=== PATIENT | male | born 1975 | race Caucasian/White ===

== ENCOUNTER 2019-03-10 21:19 | Emergency (ER) | payer MEDICARE ==
[~2019-03-10] VITALS: Ht 177.8 cm; Wt 99.2 kg
[2019-03-10] MEDS ORDERED: KLONOPIN 1MG1 MG PO (21:31)
[2019-03-10 22:29] LABS: BASO # 0.1 (0.02-0.10); EOS % 0.4 % (0.0-4.0); HEMATOCRIT 45.7 % (42.0-52.0); HEMOGLOBIN 15.9 g/dL (13.5-18.0); LYMPH# 2.1 (1.50-4.00); MEAN CELL VOLUME 85 fl (78-100); MEAN CORPUSCULAR HEMOGLOBIN 30 pg (27-31); MEAN CORPUSCULAR HGB CONC 35 g/dL (33-37); MEAN PLATELET VOLUME 9.7 fl (7.4-10.4); MONO # 0.4 (0.20-0.80); NEU # 2.3 (1.40-6.50); PLATELET COUNT 218 K/mm3 (130-400); RED BLOOD COUNT 5.37 M/mm3 (4.20-5.60); RED CELL DISTRIBUTION WIDTH 13.5 % (11.5-14.5)
[2019-03-10 22:39] LABS: ALBUMIN 4.2 g/dL (3.5-5.0); POTASSIUM 3.5 mmol/L (3.5-5.1)
[2019-03-10 22:40] LABS: CALCIUM 9.7 mg/dL (8.3-10.5)
[2019-03-10 22:41] LABS: TOTAL PROTEIN 8.1 g/dL (6.4-8.3)
[2019-03-10 22:43] LABS: TOTAL BILIRUBIN 1.1 mg/dL (0.2-1.2)
[2019-03-10 23:30] LABS: URINE APPEARANCE CLEAR; URINE BILIRUBIN NEGATIVE (NEGATIVE); URINE BLOOD NEGATIVE (NEGATIVE); URINE COLOR YELLOW; URINE KETONE SMALL (NEGATIVE); URINE LEUKOCYTE ESTERASE NEGATIVE (NEGATIVE); URINE MUCUS PRESENT (NOT PRESENT); URINE NITRATE NEGATIVE (NEGATIVE); URINE PROTEIN(semi-quant) TRACE mg/dL (NEGATIVE); URINE UROBILINOGEN NORMAL (NORMAL); URINE WBC 0-1 /hpf (0-3)
[2019-03-10 23:36] VITALS: BP 154/98
[2019-03-10] MEDS ORDERED: ZOFRAN ODT4 MG PO (23:38)
== END 2019-03-10 23:48 | disposition home or self-care (01) ==
LOC: ED 21:19
PROVIDERS: Nurse Practitioner
DX: R19.7 Diarrhea, unspecified (principal); R11.2 Nausea with vomiting, unspecified; E11.9 Type 2 diabetes mellitus without complications; F41.9 Anxiety disorder, unspecified; K21.9 Gastro-esophageal reflux disease without esophagitis
CPT/HCPCS: J2405; J7030

== ENCOUNTER → 2019-04-24 | Outpatient (CLI) | payer MEDICARE ==
[~2019-04-24] MED LIST: KLONOPIN 1MG1 MG PO; ZOFRAN ODT4 MG PO
== END ==
LOC: LAB 09:09
DX: Z12.5 Encounter for screening for malignant neoplasm of prostate (principal); E78.2 Mixed hyperlipidemia; E11.9 Type 2 diabetes mellitus without complications

== ENCOUNTER → 2019-06-13 | Outpatient (CLI) | payer MEDICARE ==
[2019-06-13 08:40] LABS: POTASSIUM 3.9 mmol/L (3.5-5.1)
[2019-06-13 08:41] LABS: CALCIUM 9.8 mg/dL (8.3-10.5)
[2019-06-13 08:42] LABS: TOTAL PROTEIN 8.3 g/dL (6.4-8.3)
[2019-06-13 08:58] LABS: HEMATOCRIT 46.7 % (42.0-52.0); HEMOGLOBIN 15.9 g/dL (13.5-18.0); MEAN CELL VOLUME 86 fl (78-100); MEAN CORPUSCULAR HEMOGLOBIN 29 pg (27-31); MEAN CORPUSCULAR HGB CONC 34 g/dL (33-37); MEAN PLATELET VOLUME 9.4 fl (7.4-10.4); PLATELET COUNT 206 K/mm3 (130-400); RED BLOOD COUNT 5.43 M/mm3 (4.20-5.60); RED CELL DISTRIBUTION WIDTH 13.4 % (11.5-14.5); WHITE BLOOD COUNT 5.3 K/mm3 (4.8-10.8)
[2019-06-13 09:13] LABS: LYMPHOCYTE 28 % (20-51); MONOCYTE 7 % (3-10); NEUTROPHILS 63 % (42-75)
== END ==
LOC: LAB 08:13
PROVIDERS: Internal Medicine
DX: I10 Essential (primary) hypertension (principal)

== ENCOUNTER → 2020-05-31 | Outpatient (CLI) | payer MEDICARE ==
[~2020-05-31] MED LIST changes: +ACETAMINOPHEN500 M7 PO; +AMARYL1 M1 PO; +DULCOLAX PO; +LOMOTIL TAB 01 UDTAB; +MELATONIN5 M3 PO; +ROBAXIN 75750 MG/TA1 PO; +ROXICODONE5 M1 PO; +TOPCARE MI1200 MG/15 PO; +TRAMADOL 50 MG TAB PO
[2020-05-31 10:55] LABS: URINE WBC 0 /hpf (0-3)
[2020-05-31 11:16] LABS: BASO # 0.1 (0.02-0.10); EOS % 0.2 % (0.0-4.0); HEMATOCRIT 42.7 % (42.0-52.0); HEMOGLOBIN 14.4 g/dL (13.5-18.0); LYMPH# 1.7 (1.50-4.00); MEAN CELL VOLUME 86 fl (78-100); MEAN CORPUSCULAR HEMOGLOBIN 29 pg (27-31); MEAN CORPUSCULAR HGB CONC 34 g/dL (33-37); MEAN PLATELET VOLUME 9.6 fl (7.4-10.4); MONO # 0.2 (0.20-0.80); PLATELET COUNT 247 K/mm3 (130-400); RED BLOOD COUNT 4.97 M/mm3 (4.20-5.60); RED CELL DISTRIBUTION WIDTH 13.5 % (11.5-14.5); WHITE BLOOD COUNT 4.2 K/mm3 (4.8-10.8)
[2020-05-31 11:26] LABS: ALBUMIN 3.9 g/dL (3.5-5.0); POTASSIUM 4.1 mmol/L (3.5-5.1)
[2020-05-31 11:27] LABS: CALCIUM 9.1 mg/dL (8.3-10.5)
[2020-05-31 11:29] LABS: URINE APPEARANCE CLEAR; URINE BILIRUBIN NEGATIVE (NEGATIVE); URINE BLOOD NEGATIVE (NEGATIVE); URINE COLOR YELLOW; URINE KETONE NEGATIVE (NEGATIVE); URINE LEUKOCYTE ESTERASE NEGATIVE (NEGATIVE); URINE NITRATE NEGATIVE (NEGATIVE); URINE PROTEIN(semi-quant) NEGATIVE (NEGATIVE); URINE UROBILINOGEN NORMAL (NORMAL)
[2020-05-31 11:31] LABS: TOTAL BILIRUBIN 0.6 mg/dL (0.2-1.2)
[2020-05-31 22:51] LABS: CREATININE OTHER SOURCE 57 mg/dL (())
[2020-06-01 10:59] LABS: TESTOSTERONE 366 ng/dL (240-871)
== END ==
LOC: LAB 10:43
PROVIDERS: Internal Medicine
DX: Z12.11 Encounter for screening for malignant neoplasm of colon (principal); Z12.5 Encounter for screening for malignant neoplasm of prostate; E11.9 Type 2 diabetes mellitus without complications; E78.2 Mixed hyperlipidemia; I10 Essential (primary) hypertension; K90.9 Intestinal malabsorption, unspecified

== ENCOUNTER → 2020-12-20 | Outpatient (CLI) | payer MEDICARE ==
[~2020-12-20] MED LIST changes: +LEVOFLOXACIN750 MG PO; +METRONIDAZOLE500 M1 PO
== END ==
LOC: LAB 13:36
DX: U07.1 COVID-19 (principal)

== ENCOUNTER → 2020-12-21 | Outpatient (CLI) | payer MEDICARE ==
[2020-12-21] VITALS (7 sets, daily range): BP systolic 131–141; BP diastolic 89–97
[~2020-12-21] VITALS: Ht 175.3 cm; Wt 89.5 kg
== END ==
LOC: AMSURD 09:01
DX: U07.1 COVID-19 (principal)
CPT/HCPCS: M0243; Q0244

== ENCOUNTER 2021-01-18 09:24 | Emergency (ER) | payer MEDICARE ==
[~2021-01-18] VITALS: Ht 175.3 cm; Wt 89.0 kg
[~2021-01-18 09:24] MED LIST changes: -ACETAMINOPHEN500 M7 PO; -AMARYL1 M1 PO; -DULCOLAX PO; -LEVOFLOXACIN750 MG PO; -LOMOTIL TAB 01 UDTAB; -MELATONIN5 M3 PO; -METRONIDAZOLE500 M1 PO; -ROBAXIN 75750 MG/TA1 PO; -ROXICODONE5 M1 PO; -TOPCARE MI1200 MG/15 PO; -TRAMADOL 50 MG TAB PO
[2021-01-18] MEDS ORDERED: LOMOTIL TAB 01 UDTAB (09:47)
[2021-01-18] MEDS ORDERED: TRAMADOL 50 MG TAB PO (09:48)
[2021-01-18] MEDS ORDERED: ACETAMINOPHEN500 M7 PO (09:49)
[2021-01-18] MEDS ORDERED: AMARYL1 M1 PO (09:49)
[2021-01-18 11:13] LABS: URINE APPEARANCE CLEAR; URINE BILIRUBIN NEGATIVE (NEGATIVE); URINE BLOOD NEGATIVE (NEGATIVE); URINE COLOR LT YELLOW; URINE GLUCOSE NEGATIVE (NEGATIVE); URINE KETONE NEGATIVE (NEGATIVE); URINE LEUKOCYTE ESTERASE NEGATIVE (NEGATIVE); URINE NITRATE NEGATIVE (NEGATIVE); URINE PROTEIN(semi-quant) NEGATIVE (NEGATIVE); URINE UROBILINOGEN NORMAL (NORMAL); URINE WBC 0-1 /hpf (0-3)
[2021-01-18 11:14] LABS: URINE MUCUS PRESENT (NOT PRESENT)
[2021-01-18 12:02] LABS: BASO # 0.01 K/mm3 (0.02-0.10); EOS # 0.02 K/mm3 (0.04-0.40); EOS % 0.7 % (0.0-4.0); HEMATOCRIT 40.2 % (42.0-52.0); HEMOGLOBIN 12.6 g/dL (13.5-18.0); MEAN CELL VOLUME 87 fl (78-100); MEAN CORPUSCULAR HEMOGLOBIN 27 pg (27-31); MEAN CORPUSCULAR HGB CONC 31 g/dL (33-37); MEAN PLATELET VOLUME 10.4 fl (7.4-10.4); NEU # 1.27 K/mm3 (1.40-6.50); PLATELET COUNT 253 K/mm3 (130-400); RED BLOOD COUNT 4.63 M/mm3 (4.20-5.60); RED CELL DISTRIBUTION WIDTH 14.6 % (11.5-14.5); WHITE BLOOD COUNT 3.1 K/mm3 (4.8-10.8)
[2021-01-18 12:56] LABS: ALBUMIN 3.9 g/dL (3.5-5.0)
[2021-01-18 12:59] LABS: POTASSIUM 4.2 mmol/L (3.5-5.1); TOTAL PROTEIN 8.3 g/dL (6.4-8.3)
[2021-01-18 13:03] LABS: TOTAL BILIRUBIN 0.6 mg/dL (0.2-1.2)
[2021-01-18 16:51] VITALS: BP 151/91
== END 2021-01-18 17:11 | disposition home or self-care (01) ==
LOC: ED 09:24
PROVIDERS: Physician Assistant
DX: C20 Malignant neoplasm of rectum (principal); R33.9 Retention of urine, unspecified; I10 Essential (primary) hypertension; F41.1 Generalized anxiety disorder; E66.9 Obesity, unspecified; E11.649 Type 2 diabetes mellitus with hypoglycemia without coma; F32.A Depression, unspecified; Z86.16 Personal history of COVID-19; Z79.899 Other long term (current) drug therapy
CPT/HCPCS: A4340; J7030

== ENCOUNTER → 2021-01-22 | Outpatient (CLI) | payer MEDICARE ==
[~2021-01-22] VITALS: Ht 175.3 cm; Wt 89.0 kg
[~2021-01-22] MED LIST changes: +ACETAMINOPHEN500 M7 PO; +AMARYL1 M1 PO; +DULCOLAX PO; +LEVOFLOXACIN750 MG PO; +LOMOTIL TAB 01 UDTAB; +MELATONIN5 M3 PO; +METRONIDAZOLE500 M1 PO; +ROBAXIN 75750 MG/TA1 PO; +ROXICODONE5 M1 PO; +TOPCARE MI1200 MG/15 PO; +TRAMADOL 50 MG TAB PO
== END ==
LOC: AMSURD 16:33
DX: R33.8 Other retention of urine (principal)

== ENCOUNTER → 2021-01-27 | Outpatient (CLI) | payer MEDICARE ==
[2021-01-27 18:18] LABS: ALBUMIN 3.8 g/dL (3.5-5.0); POTASSIUM 4.1 mmol/L (3.5-5.1)
[2021-01-27 18:19] LABS: CALCIUM 10.2 mg/dL (8.3-10.5)
[2021-01-27 18:20] LABS: TOTAL PROTEIN 8.4 g/dL (6.4-8.3)
[2021-01-27 18:22] LABS: TOTAL BILIRUBIN 0.3 mg/dL (0.2-1.2)
== END ==
LOC: LAB 17:55
PROVIDERS: Internal Medicine
DX: E11.9 Type 2 diabetes mellitus without complications (principal); K90.9 Intestinal malabsorption, unspecified

== ENCOUNTER 2021-03-05 20:32 | Emergency (ER) | payer MEDICARE ==
[~2021-03-05] VITALS: Ht 175.3 cm; Wt 84.1 kg
[~2021-03-05 20:32] MED LIST changes: -DULCOLAX PO; -LEVOFLOXACIN750 MG PO; -MELATONIN5 M3 PO; -METRONIDAZOLE500 M1 PO; -ROBAXIN 75750 MG/TA1 PO; -ROXICODONE5 M1 PO; -TOPCARE MI1200 MG/15 PO
[2021-03-05] MEDS ORDERED: ROXICODONE5 M1 PO (20:50)
[2021-03-05] MEDS ORDERED: MELATONIN5 M3 PO (20:51)
[2021-03-05] MEDS ORDERED: ROBAXIN 75750 MG/TA1 PO (20:51)
[2021-03-05] MEDS ORDERED: TOPCARE MI1200 MG/15 PO (20:52)
[2021-03-05] MEDS ORDERED: DULCOLAX PO (20:52)
[2021-03-05 21:43] LABS: BASO # 0.02 K/mm3 (0.02-0.10); EOS # 0.02 K/mm3 (0.04-0.40); EOS % 0.3 % (0.0-4.0); HEMATOCRIT 33.6 % (42.0-52.0); HEMOGLOBIN 10.9 g/dL (13.5-18.0); LYMPH# 1.37 K/mm3 (1.50-4.00); MEAN CELL VOLUME 84 fl (78-100); MEAN CORPUSCULAR HEMOGLOBIN 27 pg (27-31); MEAN CORPUSCULAR HGB CONC 32 g/dL (33-37); MEAN PLATELET VOLUME 8.9 fl (7.4-10.4); MONO # 0.52 K/mm3 (0.20-0.80); NEU # 5.62 K/mm3 (1.40-6.50); PLATELET COUNT 465 K/mm3 (130-400); RED BLOOD COUNT 4.01 M/mm3 (4.20-5.60); RED CELL DISTRIBUTION WIDTH 14.3 % (11.5-14.5)
[2021-03-05 21:50] LABS: ALBUMIN 3.2 g/dL (3.5-5.0)
[2021-03-05 21:51] LABS: POTASSIUM 3.8 mmol/L (3.5-5.1)
[2021-03-05 21:52] LABS: CALCIUM 9.5 mg/dL (8.3-10.5)
[2021-03-05 21:53] LABS: TOTAL PROTEIN 8.1 g/dL (6.4-8.3)
[2021-03-05 21:55] LABS: TOTAL BILIRUBIN 0.4 mg/dL (0.2-1.2)
[2021-03-05 22:02] LABS: PH-URINE 5.5 (5.0 - 8.0); URINE APPEARANCE HAZY; URINE BILIRUBIN NEGATIVE (NEGATIVE); URINE BLOOD TRACE (NEGATIVE); URINE COLOR YELLOW; URINE GLUCOSE NEGATIVE (NEGATIVE); URINE KETONE NEGATIVE (NEGATIVE); URINE LEUKOCYTE ESTERASE 2+ (NEGATIVE); URINE NITRATE NEGATIVE (NEGATIVE); URINE PROTEIN(semi-quant) TRACE mg/dL (NEGATIVE); URINE UROBILINOGEN NORMAL (NORMAL)
[2021-03-05 22:12] LABS: URINE WBC 31-50 /hpf (0-3)
[2021-03-05 22:13] LABS: URINE MUCUS PRESENT (NOT PRESENT)
[2021-03-06] MEDS ORDERED: LEVOFLOXACIN750 MG PO (02:36)
[2021-03-06] MEDS ORDERED: METRONIDAZOLE500 M1 PO (02:36)
[2021-03-06 03:24] VITALS: BP 133/82
== END 2021-03-06 03:24 | disposition home or self-care (01) ==
LOC: ED 20:32
PROVIDERS: Family Medicine
DX: K52.9 Noninfective gastroenteritis and colitis, unspecified (principal); C20 Malignant neoplasm of rectum; T83.511A Infection and inflammatory reaction due to indwelling urethral catheter, initial encounter; R50.9 Fever, unspecified; F41.9 Anxiety disorder, unspecified; F32.A Depression, unspecified; I10 Essential (primary) hypertension; E11.9 Type 2 diabetes mellitus without complications; Z79.899 Other long term (current) drug therapy
CPT/HCPCS: J0595; J1956; J2405; J2550; J3490; J7030; Q9967

== ENCOUNTER → 2021-05-31 | Outpatient (CLI) | payer MEDICARE ==
[~2021-05-31] MED LIST changes: +DULCOLAX PO; +LEVOFLOXACIN750 MG PO; +MELATONIN5 M3 PO; +METRONIDAZOLE500 M1 PO; +ROBAXIN 75750 MG/TA1 PO; +ROXICODONE5 M1 PO; +TOPCARE MI1200 MG/15 PO
[2021-05-31 13:58] LABS: HEMATOCRIT 30.6 % (42.0-52.0); HEMOGLOBIN 9.6 g/dL (13.5-18.0); MEAN CELL VOLUME 85 fl (78-100); MEAN CORPUSCULAR HEMOGLOBIN 27 pg (27-31); MEAN CORPUSCULAR HGB CONC 31 g/dL (33-37); MEAN PLATELET VOLUME 8.9 fl (7.4-10.4); PLATELET COUNT 272 K/mm3 (130-400); RED BLOOD COUNT 3.62 M/mm3 (4.20-5.60); RED CELL DISTRIBUTION WIDTH 16.9 % (11.5-14.5); WHITE BLOOD COUNT 3.4 K/mm3 (4.8-10.8)
[2021-05-31 14:07] LABS: ALBUMIN 3.5 g/dL (3.5-5.0); POTASSIUM 4.2 mmol/L (3.5-5.1)
[2021-05-31 14:08] LABS: CALCIUM 9.4 mg/dL (8.3-10.5)
[2021-05-31 14:09] LABS: TOTAL PROTEIN 7.7 g/dL (6.4-8.3)
[2021-05-31 14:11] LABS: TOTAL BILIRUBIN 0.4 mg/dL (0.2-1.2)
[2021-05-31 14:16] LABS: MAGNESIUM 1.81 mg/dL (1.60-2.60)
[2021-05-31 15:05] LABS: BAND 2 % (0-10); LYMPHOCYTE 14 % (20-51); MONOCYTE 10 % (3-10); NEUTROPHILS 74 % (42-75)
== END ==
LOC: LAB 13:38
PROVIDERS: Internal Medicine
DX: E11.9 Type 2 diabetes mellitus without complications (principal); I10 Essential (primary) hypertension; K90.9 Intestinal malabsorption, unspecified

== ENCOUNTER 2021-06-19 18:35 | Outpatient (RCR) | payer MEDICARE ==
[2021-06-13 18:54] VITALS: BP 120/75
[2021-06-14 18:28] VITALS: BP 117/73
[2021-06-16 19:17] VITALS: BP 122/81
[2021-06-16 19:45] VITALS: BP 122/78
[2021-06-17 19:15] VITALS: BP 109/72
[~2021-06-19] VITALS: Ht 175.3 cm; Wt 77.7 kg
[~2021-06-19 18:35] MED LIST changes: +HYOSCYAMINE0.125 M8 SL
[2021-06-19 19:34] VITALS: BP 120/80
== END 2021-06-19 21:00 | disposition home or self-care (01) ==
LOC: AMSURD 18:35
DX: E61.1 Iron deficiency (principal)
CPT/HCPCS: J1644; J1756

== ENCOUNTER → 2021-07-01 | Outpatient (CLI) | payer MEDICARE ==
[2021-07-01 14:21] LABS: HEMATOCRIT 35.8 % (42.0-52.0); HEMOGLOBIN 11.2 g/dL (13.5-18.0); MEAN CELL VOLUME 85 fl (78-100); MEAN CORPUSCULAR HEMOGLOBIN 27 pg (27-31); MEAN CORPUSCULAR HGB CONC 31 g/dL (33-37); MEAN PLATELET VOLUME 8.8 fl (7.4-10.4); PLATELET COUNT 231 K/mm3 (130-400); RED BLOOD COUNT 4.23 M/mm3 (4.20-5.60); RED CELL DISTRIBUTION WIDTH 16.7 % (11.5-14.5); WHITE BLOOD COUNT 2.9 K/mm3 (4.8-10.8)
[2021-07-01 14:54] LABS: ALBUMIN 3.5 g/dL (3.5-5.0); POTASSIUM 4.3 mmol/L (3.5-5.1)
[2021-07-01 14:55] LABS: CALCIUM 9.7 mg/dL (8.3-10.5)
[2021-07-01 14:56] LABS: LYMPHOCYTE 20 % (20-51); MONOCYTE 4 % (3-10); NEUTROPHILS 76 % (42-75)
[2021-07-01 14:57] LABS: TEAR DROP CELLS 1+
[2021-07-01 14:58] LABS: TOTAL BILIRUBIN 0.3 mg/dL (0.2-1.2)
[2021-07-01 15:00] LABS: TOTAL PROTEIN 8.2 g/dL (6.4-8.3)
[2021-07-01 15:07] LABS: MAGNESIUM 1.76 mg/dL (1.60-2.60)
== END ==
LOC: LAB 14:06
PROVIDERS: Internal Medicine
DX: C20 Malignant neoplasm of rectum (principal); K90.9 Intestinal malabsorption, unspecified; I10 Essential (primary) hypertension

== ENCOUNTER 2021-08-14 19:52 | Emergency (ER) | payer MEDICARE ==
[~2021-08-14] VITALS: Ht 175.3 cm; Wt 71.4 kg
[2021-08-14 20:14] VITALS: BP 124/88
[2021-08-14] MEDS ORDERED: AMOXICILLIN AND1 TA2 PO (23:24)
[2021-08-14] MEDS ORDERED: DESVENLAFAXINE50 M3 PO (23:25)
== END 2021-08-14 23:52 | disposition other institution (70) ==
LOC: ED 19:52
DX: R62.7 Adult failure to thrive (principal); Z93.3 Colostomy status; Z28.310 Unvaccinated for COVID-19

== ENCOUNTER 2021-08-14 22:00 | Inpatient (IN) | payer MEDICARE ==
[~2021-08-14] VITALS: Ht 175.3 cm; Wt 69.4 kg
--- NOTE | 2021-08-14 22:00 | NUR ---
Patient admitted acute from ER via wheelchair with DX of Rectal CA and failure to thrive in an adult. Patient alert and oriented x 4. Has a MANDI drain to left thigh and emptied with bowens brownish drainage and a true close drain to rectal area for drainage of abscess and emptied 50mls tanish brown drainage. True close drain tubing clamped and flushed with 5mls saline unclamped and flushed with 5 mls saline.
[2021-08-14] MEDS ORDERED: AMOXICILLIN AND1 TA2 PO (23:24)
[2021-08-14] MEDS ORDERED: DESVENLAFAXINE50 M3 PO (23:25)
--- NOTE | 2021-08-15 00:30 | NUR ---
Patient takes snack of 4 packages and peanut butter. Ate 2 packages. Jello given.
--- NOTE | 2021-08-15 01:30 | NUR ---
Patients rectal area cleansed with 5mls normal saline and 5 mls peroxide and new ABD pad applied held in place by underwear.
--- NOTE | 2021-08-15 03:00 | NUR ---
Patient rests quietly in bed. Respirations with ease.
--- NOTE | 2021-08-15 05:20 | NUR ---
Patient rests with eyes closed. Respirations shallow with ease.
[2021-08-15 05:59] VITALS: BP 121/87
[2021-08-15 07:58] LABS: HEMATOCRIT 28.7 % (42.0-52.0); MEAN CELL VOLUME 85 fl (78-100); MEAN CORPUSCULAR HEMOGLOBIN 27 pg (27-31); MEAN CORPUSCULAR HGB CONC 31 g/dL (33-37); MEAN PLATELET VOLUME 9.4 fl (7.4-10.4); PLATELET COUNT 327 K/mm3 (130-400); RED BLOOD COUNT 3.37 M/mm3 (4.20-5.60); RED CELL DISTRIBUTION WIDTH 16.5 % (11.5-14.5); WHITE BLOOD COUNT 2.6 K/mm3 (4.8-10.8)
[2021-08-15 08:12] LABS: ALBUMIN 3.4 g/dL (3.5-5.0)
[2021-08-15 08:13] LABS: CALCIUM 9.8 mg/dL (8.3-10.5)
[2021-08-15 08:14] LABS: TOTAL PROTEIN 7.6 g/dL (6.4-8.3)
[2021-08-15 08:16] LABS: TOTAL BILIRUBIN 0.2 mg/dL (0.2-1.2)
[2021-08-15 08:21] LABS: MAGNESIUM 1.79 mg/dL (1.60-2.60)
[2021-08-15 08:25] LABS: BAND 12 % (0-10); LYMPHOCYTE 27 % (20-51); MONOCYTE 5 % (3-10); NEUTROPHILS 55 % (42-75)
[2021-08-15 08:26] LABS: HYPOCHROMIA 1+
[2021-08-15 08:29] LABS: D-DIMER 1.26 mg/L FEU (0.15-0.50)
[2021-08-15 09:12] LABS: ERYTHROCYTE SEDIMENTATION RATE 143 mm/hr (0-15)
[2021-08-15 10:32] VITALS: BP 128/83
--- NOTE | 2021-08-15 13:00 | NUR ---
Receied report from Paola Lang RN.
--- NOTE | 2021-08-15 13:09 | NUR ---
REPORT GIVEN TO RAKESH MCKINLEY
--- NOTE | 2021-08-15 13:40 | NUR ---
Nayan Cabrera MD informed of patient complaint of gas pain.
--- NOTE | 2021-08-15 14:02 | NUR ---
ABN SIGNED BY PATIENT STATES UNDERSTANDING, GIVEN A COPY OF ABN. AWAITING DISOPOSITION OF AUTHORIZATION FROM [employer] [facility] [employer].
[2021-08-15 14:15] VITALS: BP 115/74
[2021-08-15 18:27] VITALS: BP 136/88
--- NOTE | 2021-08-15 18:29 | NUR ---
Blood glucose recheck 228.
--- NOTE | 2021-08-15 18:51 | NUR ---
awaiting insurance determination for acute stay and swb?
--- NOTE | 2021-08-15 18:51 | NUR ---
called yordan to [facility]. asked about potential appointments this week? could they be virtual.
--- NOTE | 2021-08-15 19:00 | NUR ---
Report received from Letty MCKINLEY.
--- NOTE | 2021-08-15 21:00 | NUR ---
States that pain med earlier helped. Affect flat/depressed. Thigh drain tubing clamped and flushed with 5mls NS unclamped and flushed with 5mls saline. 60 mls of milky bowens drainage emptied from drain by patient while nurse holds cup. Patient does black care with set up help and assist managing underwear. Anal flap cleansed with peroxide and saline, patted dry and sanitary pad applied. Requests stool softner but declines this HS and will take in am. Snacks of choice given.
--- NOTE | 2021-08-15 21:00 | NUR ---
Patient states pain med given earlier helped. Affect flat. Alert and oriented x 4. True close suction drain to left buttuck tubing clamped and flushed with 5 mls NS then unclamped and flushed with 5mls NS. 60 mls milky bowens drainage emptied by patient while nurse held cup. Patient does black care with set up help and assist with clothing. Coccyx cleansed with mixture of 5mls peroxide and 5mls NS, patted dry and sanitary pad applied. Scant bowens drainage noted on previous ABD pad. Requested stool softner, nurse brought in and patient declined. States will take in am.
--- NOTE | 2021-08-15 23:45 | NUR ---
Patient states he will take colace now and given. Tylenol and klonopin given earlier for dull achy pain to lower abdomin and coccyx.
--- NOTE | 2021-08-16 01:30 | NUR ---
Patient awake and states he just checked his blood sugar and is 160 per own glucometer. Currently eating rest of peanut butter and jelly sandwich and inquiring if he should have juice. Explained not recommended at this time for a blood sugar of 160.
--- NOTE | 2021-08-16 04:21 | NUR ---
Patient awake. States "no not really" to question if getting sleep this noc.
--- NOTE | 2021-08-16 04:29 | NUR ---
Requests klonopin for sleep and roxycodone for "bottom hurting" 5/10 pain level and given.
[2021-08-16 06:11] VITALS: BP 127/86
[2021-08-16 10:25] VITALS: BP 126/82
--- NOTE | 2021-08-16 10:38 | NUR ---
Pt a/o x4. Pt states has 6/10 pain. This nurse gave PRN med for pain. Pt was up for breakfast but went back to bed after he ate. Reviewed pt drains and showering status. This nurse recommended he take a shower today with assistance. Pt in bed, call light within reach.
[2021-08-16 13:53] VITALS: BP 115/83
--- NOTE | 2021-08-16 14:01 | NUR ---
Pt's black catheter has hematuria when he sits or stands. Reported to MUNIR Pedroza. Pt has pelvic accordian drain that is producing malodorous, purulent drainage. Called [facility]. Per [facility], flushing 10 mL Normal Saline is ok BID.
--- NOTE | 2021-08-16 14:20 | NUR ---
Flushed pelvic wound drain with 10 mL of normal saline.
--- NOTE | 2021-08-16 14:34 | NUR ---
Called [facility]. They still have Anurag on Services. Left a voice message for his nurse to call me back and or fax records to give care to drains and wound care. Was advised by nursing that the exudate draining from the wound is purulant and foul smelling. Currently Anurag is on augmentin 875 mg twice daily. WBC's are low at 2.6. Not sure of his previous wbc count. Graciela Guevara will discuss with Dr. Cabrera plan of care. Nursing reports Urin is ladan colored as well. Notified insurance [facility] [employer] that Dr. Cabrera will want to do a peer to peer with their provider for potential swb/acute care. No authorizations as of yet.
[2021-08-16 15:41] LABS: URINE APPEARANCE CLEAR; URINE BILIRUBIN NEGATIVE (NEGATIVE); URINE BLOOD 250 ery/uL (NEGATIVE); URINE COLOR YELLOW; URINE GLUCOSE NEGATIVE (NEGATIVE); URINE KETONE NEGATIVE (NEGATIVE); URINE LEUKOCYTE ESTERASE 2+ (NEGATIVE); URINE MUCUS PRESENT (NOT PRESENT); URINE NITRATE NEGATIVE (NEGATIVE); URINE PROTEIN(semi-quant) 3+ (NEGATIVE); URINE UROBILINOGEN NORMAL (NORMAL); URINE WBC 16-30 /hpf (0-3)
--- NOTE | 2021-08-16 17:45 | NUR ---
This nurse and student nurse to room to administer new order of Levemier 10 units. Explained new order and purpose. Patient is reluctant to take and states that this is causes him "great anxiety". This nurse advised patient that he can refuse but that Dr. Cabrera is aware and would like him to take. Patient states he is "worried" he will go low in the night. Advised patient that if he feels he is slow or is exhibiting S/S of hypoglycemia that we can check his blood sugars, otherwise they will be checked before meals and at bedtime. Patient is still reluctant and undecesive and would like to talk to a provider. Brigid AMARAL notified.
[2021-08-16 18:07] VITALS: BP 123/80
--- NOTE | 2021-08-16 18:32 | NUR ---
Brigid in to see patient. Patient is still undecisive at this time.
--- NOTE | 2021-08-16 18:45 | NUR ---
Brigid AMARAL back in to talk to patient. Patient agrees to split dose BID. 5 Units in the AM and 5 Units in the evening.
--- NOTE | 2021-08-16 19:08 | NUR ---
Resting supine in bed. IVF infusing NS at 100 ML/HR via accessed port. Rates pain 5/10 to buttocks but denies need for analgesic at this time. Requested and given klonopin now. Valverde patent to DD with tea colored urine in bag. Colostomy bag intact with no BM in bag.
--- NOTE | 2021-08-17 01:46 | NUR ---
New bag of IVF hung. Patient sleeping with no signs of pain or distress.
--- NOTE | 2021-08-17 04:52 | NUR ---
Rested well all shift. Rings call light at 0430 to request Clonazepam and pain med. IV Zosyn and PO Protonix taken at this time as well. Thigh drain with 5 ML of drainage this shift. Abcess drain with 25 Ml of drainage. Rates pain 5/10. AM vital signs and weight obtained.
[2021-08-17 05:56] VITALS: BP 128/84
[2021-08-17 07:02] LABS: HEMATOCRIT 28.3 % (42.0-52.0); HEMOGLOBIN 8.6 g/dL (13.5-18.0); MEAN CELL VOLUME 87 fl (78-100); MEAN CORPUSCULAR HEMOGLOBIN 27 pg (27-31); MEAN CORPUSCULAR HGB CONC 30 g/dL (33-37); MEAN PLATELET VOLUME 8.9 fl (7.4-10.4); PLATELET COUNT 294 K/mm3 (130-400); RED BLOOD COUNT 3.24 M/mm3 (4.20-5.60); RED CELL DISTRIBUTION WIDTH 16.7 % (11.5-14.5); WHITE BLOOD COUNT 2.3 K/mm3 (4.8-10.8)
[2021-08-17 07:05] LABS: POTASSIUM 4.1 mmol/L (3.5-5.1)
[2021-08-17 07:06] LABS: CALCIUM 9.2 mg/dL (8.3-10.5)
[2021-08-17 07:10] LABS: TOTAL BILIRUBIN 0.3 mg/dL (0.2-1.2)
[2021-08-17 07:58] LABS: BAND 5 % (0-10); LYMPHOCYTE 19 % (20-51); MONOCYTE 5 % (3-10); NEUTROPHILS 70 % (42-75)
[2021-08-17 08:00] LABS: HYPOCHROMIA 2+
[2021-08-17 08:03] LABS: POLYCHROMASIA 1+
[2021-08-17 09:59] VITALS: BP 128/87
--- NOTE | 2021-08-17 10:45 | NUR ---
Flushed accordian type drain as instructed with 10 ml NS. Pt requested I empty his drains at this time. Emptied 70ml purulent bowens colored drainage from accordian drain and approx 3ml serosang drainage from MANDI drain. Also emptied soft formed stool from colostomy bag x2 . Cleaned the rectal flap area with NS and peroxide and replaced the ABD pad. No drainage noted on previous dressing.
--- NOTE | 2021-08-17 11:00 | NUR ---
Taken to CT per w/c
--- NOTE | 2021-08-17 11:10 | NUR ---
Returned to room. Reconnected IVF.
--- NOTE | 2021-08-17 13:56 | NUR ---
1330 - REPORT RECEIVED FROM REAGAN MCKINLEY. RESUMED CARE FOR THIS PATIENT. 1345 - .45 SALINE STARTED. 1400 - 1000 MG TYLENOL GIVEN TO PT. HE IS C/O OF LOWER ABDOMINAL AND PENIS PAIN THIS TIME.
--- NOTE | 2021-08-17 13:58 | NUR ---
1030 Pt c/o "butt pain" rated at 5/10. Also very anxious about having dark red blood and clots in his urine in black bag. Graciela Guevara PA in to speak to patient about current labs, and upcoming tests. Explained that she was ordering a CT of his Abd to make sure we arent missing anything but that she thought the blood in his urine was still from his UTI. Started back on Zosyn. Gave pt roxicodone for his pain and Klonopin for his anxiety.
--- NOTE | 2021-08-17 14:16 | NUR ---
Pt continues to stress about the blood in his urine. Now feels like his bladder isnt emptying. Nurse showed him the catheter tubing and that he is indeed emptying his bladder. Graciela Guevara will discuss CT results with patient.
--- NOTE | 2021-08-17 14:18 | NUR ---
Report given to Brandie Healy RN.
[2021-08-17 15:51] VITALS: BP 135/88
--- NOTE | 2021-08-17 18:14 | NUR ---
Tony - YANELY REQUESTED TO BLADDER SCAN PATIENT. PT HAS BEEN C/O LOWER ABD PAIN GOING TOWARDS THE PENIS. DRAINAGE WITH RED TINT NOTED THROUGH THE TO CATHETER ALL DAY. BEATA PERFORMED THE BLADDER SCAN. APPROXIMATELY 400ML NOTED DURING THE SCAN. DISCUSSED WITH YANELY. DECISION WAS MADE TO ATTEMPT TO FLUSH THE CATHER FIRST TO SEE IF THAT WOULD IMPROVE FLOW VS. SWITCHING OUT THE TO CATHETER. BLOODY RETURN WAS NOTED IN THE MELI SYRINGE. BLOOD CLOT WAS SUCKED OUT OF CATHETER. ADEQUATE URINE RETURN WAS NOTED FOLLOWING THE REMOVAL OF THE BLOOD CLOT.
--- NOTE | 2021-08-17 18:20 | NUR ---
1820 - PT IS STATING THAT HE FEELS BETTER AFTER URINE FLOW WAS IMPROVED AND ADDITIONAL 5MG OXYCODONE GIVEN. 1MG OF KLONOPIN WAS GIVEN TO PT AT 1735. PT CURRENTLY AT BEDSIDE.
--- NOTE | 2021-08-17 20:00 | NUR ---
Report received from Brandie MCKINLEY. Patient resting supine in bed. IVF infusing 1/2 NS at 75 ML/HR. through port. Patent. Valverde to DD with clear yellow urine in bag. No distress.
--- NOTE | 2021-08-17 23:30 | NUR ---
HS medications taken at this time. Requests and given Oxycodone for buttock pain and Klonopin for anxiety. Refused PO colace. Drain flushed with 10 ML of NS per order. Black cath is patent to DD with clear yellow urine in bag. 900 ML of urine emtied from black bag by MANAGER [employer]IANCE at 2300.
[2021-08-18 06:11] VITALS: BP 114/75
[2021-08-18 06:39] LABS: HEMATOCRIT 26.8 % (42.0-52.0); HEMOGLOBIN 8.2 g/dL (13.5-18.0); MEAN CELL VOLUME 87 fl (78-100); MEAN CORPUSCULAR HEMOGLOBIN 27 pg (27-31); MEAN CORPUSCULAR HGB CONC 31 g/dL (33-37); MEAN PLATELET VOLUME 8.9 fl (7.4-10.4); PLATELET COUNT 265 K/mm3 (130-400); RED BLOOD COUNT 3.07 M/mm3 (4.20-5.60); RED CELL DISTRIBUTION WIDTH 17.2 % (11.5-14.5); WHITE BLOOD COUNT 2.7 K/mm3 (4.8-10.8)
[2021-08-18 06:46] LABS: ALBUMIN 2.8 g/dL (3.5-5.0); POTASSIUM 4.1 mmol/L (3.5-5.1)
[2021-08-18 06:49] LABS: TOTAL PROTEIN 6.7 g/dL (6.4-8.3)
[2021-08-18 06:51] LABS: TOTAL BILIRUBIN 0.2 mg/dL (0.2-1.2)
--- NOTE | 2021-08-18 07:00 | NUR ---
Report received from JORGE Estes.
[2021-08-18 07:21] LABS: BAND 2 % (0-10); HYPOCHROMIA 2+; LYMPHOCYTE 18 % (20-51); MONOCYTE 5 % (3-10); NEUTROPHILS 73 % (42-75); POLYCHROMASIA 1+
[2021-08-18 07:22] LABS: MICROCYTOSIS 1+
[2021-08-18 07:23] LABS: NUCLEATED RED BLOOD CELL 1 (0-6)
--- NOTE | 2021-08-18 07:45 | NUR ---
Patient A&Ox4. Reports sleeping well last night. Reports 4/10 pain. Assessment completed. NS infusing at 75mL/hr. Valverde bag with blood tinged urine. Needs met. Fall precautions in place.
--- NOTE | 2021-08-18 09:00 | NUR ---
Patient reports that he would not like to take 7 units Levemir and would like to continue with 5 units only. Reports that he feels that 7 units would put his blood sugar "too low" and he is "tired of all the changes."
--- NOTE | 2021-08-18 15:30 | NUR ---
Holly Chappell APRN notified of hematuria. Dr. Cabrera to see pt.
[2021-08-18 16:48] VITALS: BP 122/84
--- NOTE | 2021-08-18 18:56 | NUR ---
Report given to JORGE Estes.
--- NOTE | 2021-08-19 03:50 | NUR ---
Request Clonazepam and pudding for snack. Checking own blood sugar and noted to be 120. "they raised my insulin and caused it to drop" Discussed insulin was raised because it is running too high for him to heal properly. Patient reports it makes him "feel funny if it gets below 150."
[2021-08-19 06:27] VITALS: BP 128/80
--- NOTE | 2021-08-19 07:00 | NUR ---
REPORT RECIEVED FROM JORGE PAREDES
[2021-08-19 07:21] LABS: HEMATOCRIT 27.8 % (42.0-52.0); HEMOGLOBIN 8.5 g/dL (13.5-18.0); MEAN CELL VOLUME 88 fl (78-100); MEAN CORPUSCULAR HEMOGLOBIN 27 pg (27-31); MEAN CORPUSCULAR HGB CONC 31 g/dL (33-37); MEAN PLATELET VOLUME 8.6 fl (7.4-10.4); PLATELET COUNT 259 K/mm3 (130-400); RED BLOOD COUNT 3.16 M/mm3 (4.20-5.60); RED CELL DISTRIBUTION WIDTH 17.5 % (11.5-14.5); WHITE BLOOD COUNT 2.6 K/mm3 (4.8-10.8)
[2021-08-19 07:29] LABS: POTASSIUM 3.9 mmol/L (3.5-5.1)
[2021-08-19 07:30] LABS: CALCIUM 9.5 mg/dL (8.3-10.5)
[2021-08-19 07:31] LABS: TOTAL PROTEIN 6.8 g/dL (6.4-8.3)
[2021-08-19 07:33] LABS: TOTAL BILIRUBIN 0.3 mg/dL (0.2-1.2)
--- NOTE | 2021-08-19 07:46 | NUR ---
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
[2021-08-19 08:11] LABS: BAND 3 % (0-10); LYMPHOCYTE 21 % (20-51); MONOCYTE 11 % (3-10); NEUTROPHILS 64 % (42-75)
[2021-08-19 08:15] LABS: MICROCYTOSIS 1+; POLYCHROMASIA 1+
[2021-08-19 08:16] LABS: HYPOCHROMIA 1+
--- NOTE | 2021-08-19 09:00 | NUR ---
PATIENT PLEASENT AND COOPERATIVE WITH CARES. UP TO CHAIR FOR MORNING MEAL. OFFERS NO NEEDS OR COMPLAINTS AT THIS TIME. CHAIR ALARM ON, CALL LIGHT WITHIN REACH
== END 2021-08-19 10:19 | disposition swing bed (61) | DRG 393 ==
LOC: MED/SURG 22:00
PROVIDERS: Family Medicine; Physician Assistant; ADMIT Internal Medicine
DX: K61.1 Rectal abscess (principal); K65.1 Peritoneal abscess; N39.0 Urinary tract infection, site not specified; C20 Malignant neoplasm of rectum; K90.9 Intestinal malabsorption, unspecified; R62.7 Adult failure to thrive; K58.9 Irritable bowel syndrome, unspecified; E11.40 Type 2 diabetes mellitus with diabetic neuropathy, unspecified; R33.9 Retention of urine, unspecified; D50.9 Iron deficiency anemia, unspecified; E55.9 Vitamin D deficiency, unspecified; F32.A Depression, unspecified; F41.9 Anxiety disorder, unspecified; Z79.891 Long term (current) use of opiate analgesic; Z93.3 Colostomy status; Z88.8 Allergy status to other drugs, medicaments and biological substances; Z28.310 Unvaccinated for COVID-19
CPT/HCPCS: A9270-GY; J1650; J1756; J1815; J2405; J2543; Q9967

== ENCOUNTER 2021-08-19 08:45 | Inpatient (IN) | payer MEDICARE ==
[~2021-08-19] VITALS: Ht 175.3 cm; Wt 57.0 kg
[~2021-08-19 08:45] MED LIST changes: +AMOXICILLIN AND1 TA2 PO; +DESVENLAFAXINE50 M3 PO
[2021-08-19 17:21] VITALS: BP 137/81
[2021-08-19 18:08] VITALS: BP 137/81
[2021-08-20 06:30] VITALS: BP 122/79
[2021-08-20 17:53] VITALS: BP 116/76
[2021-08-21 05:45] VITALS: BP 130/82
[2021-08-21 17:33] VITALS: BP 123/79
[2021-08-22 06:06] VITALS: BP 114/75
[2021-08-22 08:58] LABS: HEMATOCRIT 28.9 % (42.0-52.0); HEMOGLOBIN 8.9 g/dL (13.5-18.0); MEAN CELL VOLUME 89 fl (78-100); MEAN CORPUSCULAR HEMOGLOBIN 27 pg (27-31); MEAN CORPUSCULAR HGB CONC 31 g/dL (33-37); MEAN PLATELET VOLUME 9.1 fl (7.4-10.4); PLATELET COUNT 255 K/mm3 (130-400); RED BLOOD COUNT 3.25 M/mm3 (4.20-5.60); RED CELL DISTRIBUTION WIDTH 18.6 % (11.5-14.5); WHITE BLOOD COUNT 2.4 K/mm3 (4.8-10.8)
[2021-08-22 09:09] LABS: POTASSIUM 3.8 mmol/L (3.5-5.1)
[2021-08-22 09:10] LABS: CALCIUM 9.4 mg/dL (8.3-10.5)
[2021-08-22 09:13] LABS: TOTAL BILIRUBIN 0.2 mg/dL (0.2-1.2)
[2021-08-22 11:00] LABS: BAND 5 % (0-10); LYMPHOCYTE 20 % (20-51); MONOCYTE 8 % (3-10); NEUTROPHILS 67 % (42-75)
[2021-08-22 11:01] LABS: POLYCHROMASIA 1+
[2021-08-22 11:02] LABS: HYPOCHROMIA 1+; MICROCYTOSIS 1+
[2021-08-22 16:46] VITALS: BP 122/79
[2021-08-23 06:08] VITALS: BP 120/79
[2021-08-23 18:25] VITALS: BP 117/79
[2021-08-24 05:53] VITALS: BP 115/75
[2021-08-24 17:18] VITALS: BP 126/82
[2021-08-25 05:56] VITALS: BP 117/80
[2021-08-25 07:14] LABS: HEMATOCRIT 28.4 % (42.0-52.0); HEMOGLOBIN 8.7 g/dL (13.5-18.0); MEAN CELL VOLUME 90 fl (78-100); MEAN CORPUSCULAR HEMOGLOBIN 28 pg (27-31); MEAN CORPUSCULAR HGB CONC 31 g/dL (33-37); MEAN PLATELET VOLUME 9.1 fl (7.4-10.4); PLATELET COUNT 222 K/mm3 (130-400); RED BLOOD COUNT 3.14 M/mm3 (4.20-5.60); RED CELL DISTRIBUTION WIDTH 18.8 % (11.5-14.5); WHITE BLOOD COUNT 2.1 K/mm3 (4.8-10.8)
[2021-08-25 08:08] LABS: POTASSIUM 3.6 mmol/L (3.5-5.1)
[2021-08-25 08:09] LABS: CALCIUM 9.2 mg/dL (8.3-10.5)
[2021-08-25] MEDS ORDERED: AMOXICILLIN AND1 TA2 PO (08:47)
[2021-08-25] MEDS ORDERED: LEVEMIR FLEX100 U/ML SQ (08:47)
[2021-08-25 10:01] LABS: BAND 5 % (0-10); LYMPHOCYTE 26 % (20-51); MONOCYTE 6 % (3-10); NEUTROPHILS 61 % (42-75); POLYCHROMASIA 1+
[2021-08-25 10:02] LABS: HYPOCHROMIA 1+; MICROCYTOSIS 1+
== END 2021-08-25 14:10 | disposition home health service (06) | DRG 947 ==
LOC: MED/SURG 08:45
PROVIDERS: ADMIT Physician Assistant
DX: R53.81 Other malaise (principal); K65.1 Peritoneal abscess; Z68.1 Body mass index [BMI] 19.9 or less, adult; N39.0 Urinary tract infection, site not specified; K76.0 Fatty (change of) liver, not elsewhere classified; M54.9 Dorsalgia, unspecified; K58.9 Irritable bowel syndrome, unspecified; E11.9 Type 2 diabetes mellitus without complications; R33.9 Retention of urine, unspecified; R62.51 Failure to thrive (child); F32.A Depression, unspecified; F41.9 Anxiety disorder, unspecified; Z79.891 Long term (current) use of opiate analgesic; Z93.3 Colostomy status; Z85.048 Personal history of other malignant neoplasm of rectum, rectosigmoid junction, and anus; Z92.21 Personal history of antineoplastic chemotherapy; Z88.8 Allergy status to other drugs, medicaments and biological substances
CPT/HCPCS: J1644; J1756; J1815; J2543

== ENCOUNTER → 2021-09-26 | Outpatient (CLI) | payer MEDICARE ==
[~2021-09-26] MED LIST changes: +LEVEMIR FLEX100 U/ML SQ
[2021-09-26 10:49] LABS: HEMATOCRIT 34.9 % (42.0-52.0); HEMOGLOBIN 11.2 g/dL (13.5-18.0); MEAN CELL VOLUME 92 fl (78-100); MEAN CORPUSCULAR HEMOGLOBIN 30 pg (27-31); MEAN CORPUSCULAR HGB CONC 32 g/dL (33-37); MEAN PLATELET VOLUME 9.5 fl (7.4-10.4); PLATELET COUNT 195 K/mm3 (130-400); RED CELL DISTRIBUTION WIDTH 17.4 % (11.5-14.5); WHITE BLOOD COUNT 2.2 K/mm3 (4.8-10.8)
[2021-09-26 11:00] LABS: ALBUMIN 3.7 g/dL (3.5-5.0)
[2021-09-26 11:01] LABS: POTASSIUM 3.9 mmol/L (3.5-5.1)
[2021-09-26 11:02] LABS: CALCIUM 9.2 mg/dL (8.3-10.5)
[2021-09-26 11:03] LABS: TOTAL PROTEIN 7.4 g/dL (6.4-8.3)
[2021-09-26 11:05] LABS: TOTAL BILIRUBIN 0.4 mg/dL (0.2-1.2)
[2021-09-26 13:14] LABS: LYMPHOCYTE 24 % (20-51); MONOCYTE 4 % (3-10); NEUTROPHILS 72 % (42-75)
[2021-09-26 13:20] LABS: ACANTHROCYTES 1+
== END ==
LOC: LAB 10:34
PROVIDERS: Internal Medicine
DX: C20 Malignant neoplasm of rectum (principal)

== ENCOUNTER 2021-09-30 23:50 | Emergency (ER) | payer MEDICARE ==
[~2021-09-30] VITALS: Ht 175.3 cm; Wt 84.1 kg
[2021-10-01 01:08] LABS: HEMATOCRIT 36.6 % (42.0-52.0); MEAN CELL VOLUME 91 fl (78-100); MEAN CORPUSCULAR HEMOGLOBIN 30 pg (27-31); MEAN CORPUSCULAR HGB CONC 33 g/dL (33-37); MEAN PLATELET VOLUME 9.3 fl (7.4-10.4); PLATELET COUNT 176 K/mm3 (130-400); RED BLOOD COUNT 4.03 M/mm3 (4.20-5.60); WHITE BLOOD COUNT 2.3 K/mm3 (4.8-10.8)
[2021-10-01 01:18] LABS: ALBUMIN 3.7 g/dL (3.5-5.0)
[2021-10-01 01:20] LABS: CALCIUM 9.2 mg/dL (8.3-10.5)
[2021-10-01 01:21] LABS: TOTAL PROTEIN 7.3 g/dL (6.4-8.3)
[2021-10-01 01:34] LABS: BAND 8 % (0-10); LYMPHOCYTE 6 % (20-51); MONOCYTE 7 % (3-10); NEUTROPHILS 78 % (42-75)
[2021-10-01 01:38] LABS: PH-URINE 5.5 (5.0 - 8.0); URINE APPEARANCE CLEAR; URINE BILIRUBIN NEGATIVE (NEGATIVE); URINE BLOOD NEGATIVE (NEGATIVE); URINE COLOR YELLOW; URINE GLUCOSE NEGATIVE (NEGATIVE); URINE KETONE NEGATIVE (NEGATIVE); URINE LEUKOCYTE ESTERASE 1+ (NEGATIVE); URINE NITRATE POSITIVE (NEGATIVE); URINE PROTEIN(semi-quant) NEGATIVE (NEGATIVE); URINE UROBILINOGEN NORMAL (NORMAL)
[2021-10-01 01:39] LABS: POTASSIUM 3.6 mmol/L (3.5-5.1)
[2021-10-01 01:43] LABS: TOTAL BILIRUBIN 0.4 mg/dL (0.2-1.2)
[2021-10-01] MEDS ORDERED: AMOXICILLIN AND1 TA2 PO (09:11)
[2021-10-01 10:05] VITALS: BP 120/82
[2021-10-04] MEDS ORDERED: BACTRIM DS TAB1 EACH PO (17:32)
== END 2021-10-01 10:05 | disposition home or self-care (01) ==
LOC: ED 23:50
PROVIDERS: Family Medicine
DX: R50.9 Fever, unspecified (principal); Z85.048 Personal history of other malignant neoplasm of rectum, rectosigmoid junction, and anus; Z20.822 Contact with and (suspected) exposure to COVID-19; Z86.16 Personal history of COVID-19; Z28.310 Unvaccinated for COVID-19
CPT/HCPCS: J2543; Q9967

== ENCOUNTER → 2021-10-26 | Outpatient (CLI) | payer MEDICARE ==
[~2021-10-26] MED LIST changes: +BACTRIM DS TAB1 EACH PO
[2021-10-26 16:09] LABS: BASO # 0.01 K/mm3 (0.02-0.10); EOS # 0.01 K/mm3 (0.04-0.40); EOS % 0.6 % (0.0-4.0); HEMATOCRIT 34.8 % (42.0-52.0); HEMOGLOBIN 11.4 g/dL (13.5-18.0); LYMPH# 0.54 K/mm3 (1.50-4.00); MEAN CELL VOLUME 90 fl (78-100); MEAN CORPUSCULAR HEMOGLOBIN 30 pg (27-31); MEAN CORPUSCULAR HGB CONC 33 g/dL (33-37); MEAN PLATELET VOLUME 8.7 fl (7.4-10.4); PLATELET COUNT 199 K/mm3 (130-400); RED BLOOD COUNT 3.87 M/mm3 (4.20-5.60); RED CELL DISTRIBUTION WIDTH 15.4 % (11.5-14.5)
[2021-10-26 16:15] LABS: ALBUMIN 3.8 g/dL (3.5-5.0); POTASSIUM 4.1 mmol/L (3.5-5.1)
[2021-10-26 16:17] LABS: CALCIUM 9.2 mg/dL (8.3-10.5)
[2021-10-26 16:18] LABS: TOTAL PROTEIN 8.2 g/dL (6.4-8.3)
[2021-10-26 16:20] LABS: TOTAL BILIRUBIN 0.4 mg/dL (0.2-1.2)
[2021-10-26 16:24] LABS: MAGNESIUM 1.69 mg/dL (1.60-2.60)
[2021-10-26 16:33] LABS: WHITE BLOOD COUNT 1.7 K/mm3 (4.8-10.8)
[2021-10-26 17:35] LABS: ERYTHROCYTE SEDIMENTATION RATE 25 mm/hr (0-15)
== END ==
LOC: LAB 15:42
PROVIDERS: Internal Medicine
DX: C20 Malignant neoplasm of rectum (principal); R19.7 Diarrhea, unspecified; E11.9 Type 2 diabetes mellitus without complications; K90.9 Intestinal malabsorption, unspecified; F33.2 Major depressive disorder, recurrent severe without psychotic features; F41.1 Generalized anxiety disorder

== ENCOUNTER → 2021-11-04 | Outpatient (CLI) | payer MEDICARE ==
[2021-11-04 16:25] LABS: BASO # 0.01 K/mm3 (0.02-0.10); EOS # 0.01 K/mm3 (0.04-0.40); EOS % 0.4 % (0.0-4.0); HEMATOCRIT 37.2 % (42.0-52.0); HEMOGLOBIN 12.1 g/dL (13.5-18.0); LYMPH# 0.62 K/mm3 (1.50-4.00); MEAN CELL VOLUME 91 fl (78-100); MEAN CORPUSCULAR HEMOGLOBIN 30 pg (27-31); MEAN CORPUSCULAR HGB CONC 33 g/dL (33-37); MONO # 0.16 K/mm3 (0.20-0.80); NEU # 1.37 K/mm3 (1.40-6.50); PLATELET COUNT 192 K/mm3 (130-400); RED BLOOD COUNT 4.07 M/mm3 (4.20-5.60); RED CELL DISTRIBUTION WIDTH 15.6 % (11.5-14.5); WHITE BLOOD COUNT 2.3 K/mm3 (4.8-10.8)
== END ==
LOC: LAB 16:10
PROVIDERS: Internal Medicine
DX: C20 Malignant neoplasm of rectum (principal)

== ENCOUNTER → 2021-11-18 | Outpatient (CLI) | payer MEDICARE | LOC: RAD 09:54 | DX: K65.1 Peritoneal abscess (principal); Z85.048 Personal history of other malignant neoplasm of rectum, rectosigmoid junction, and anus; N32.89 Other specified disorders of bladder | CPT/HCPCS: Q9967 ==

== ENCOUNTER → 2021-12-10 | Outpatient (CLI) | payer MEDICARE ==
[2021-12-10 15:06] LABS: URINE APPEARANCE HAZY; URINE BILIRUBIN NEGATIVE (NEGATIVE); URINE BLOOD 250 ery/uL (NEGATIVE); URINE COLOR YELLOW; URINE GLUCOSE NEGATIVE (NEGATIVE); URINE KETONE NEGATIVE (NEGATIVE); URINE LEUKOCYTE ESTERASE 2+ (NEGATIVE); URINE NITRATE POSITIVE (NEGATIVE); URINE PROTEIN(semi-quant) 1+ (NEGATIVE); URINE UROBILINOGEN NORMAL (NORMAL); URINE WBC 16-30 /hpf (0-3)
== END ==
LOC: LAB 13:55
PROVIDERS: Internal Medicine
DX: C20 Malignant neoplasm of rectum (principal); F33.2 Major depressive disorder, recurrent severe without psychotic features; F41.1 Generalized anxiety disorder; E11.9 Type 2 diabetes mellitus without complications; K90.9 Intestinal malabsorption, unspecified; N39.0 Urinary tract infection, site not specified; G89.29 Other chronic pain

== ENCOUNTER → 2021-12-16 | Outpatient (CLI) | payer MEDICARE ==
[~2021-12-16] VITALS: Ht 175.3 cm; Wt 84.1 kg
[2021-12-16 13:48] VITALS: BP 144/89
--- NOTE | 2021-12-16 13:51 | NUR ---
TO CATHETER URINE SPECIMEN OBTAINED PER ORDERS
[2021-12-16 14:48] LABS: URINE APPEARANCE HAZY; URINE BILIRUBIN NEGATIVE (NEGATIVE); URINE BLOOD 50 ery/uL (NEGATIVE); URINE COLOR LIGHT YELLOW; URINE GLUCOSE NEGATIVE (NEGATIVE); URINE KETONE NEGATIVE (NEGATIVE); URINE LEUKOCYTE ESTERASE 2+ (NEGATIVE); URINE NITRATE POSITIVE (NEGATIVE); URINE PROTEIN(semi-quant) 1+ (NEGATIVE); URINE UROBILINOGEN NORMAL (NORMAL); URINE WBC 16-30 /hpf (0-3)
== END ==
LOC: AMSURD 12:30 → LAB 12:30
PROVIDERS: Internal Medicine
DX: N39.0 Urinary tract infection, site not specified (principal)

== ENCOUNTER → 2021-12-30 | Outpatient (CLI) | payer MEDICARE | LOC: RAD 15:09 | DX: K65.1 Peritoneal abscess (principal); Z85.048 Personal history of other malignant neoplasm of rectum, rectosigmoid junction, and anus; Z93.3 Colostomy status | CPT/HCPCS: Q9967 ==

== ENCOUNTER → 2022-01-24 | Outpatient (CLI) | payer MEDICARE ==
[~2022-01-24] MED LIST changes: +ROXICODONE 55 MG/TAB PO
== END ==
LOC: RAD 10:00
DX: R59.0 Localized enlarged lymph nodes (principal); K65.1 Peritoneal abscess; Z93.3 Colostomy status
CPT/HCPCS: Q9967

== ENCOUNTER → 2022-02-16 | Outpatient (CLI) | payer MEDICARE | LOC: RAD 10:00 | DX: K65.1 Peritoneal abscess (principal); I89.0 Lymphedema, not elsewhere classified; Z79.2 Long term (current) use of antibiotics | CPT/HCPCS: Q9967 ==